=== PATIENT | male | born 1935 | race Caucasian/White ===

== ENCOUNTER 2021-07-15 10:45 | Observation (INO) | payer OTHER ==
[~2021-07-15] VITALS: Ht 182.9 cm; Wt 81.6 kg
[~2021-07-15 10:45] MED LIST: AMLODIPINE BESY10 MG PO; ATORVASTATIN CA20 MG PO; ELIQUIS5 MG PO; FLUOXETINE HCL40 MG PO; LOPRESSOR50 PO; LOSARTAN POTAS100 MG PO
[2021-07-15 12:36] VITALS: BP 149/56
[2021-07-15 12:40] LABS: HEMATOCRIT 36.4 % (42.0-52.0); MCH 27.9 pg (26.0-34.0); MCHC 32.9 g/dL (28.0-37.0); MCV 84.7 fL (80.0-100.0); RBC 4.3 mil/uL (4.50-6.00); RDW 17.6 % (10.5-14.5); WBC 8.2 thou/uL (4.0-11.0)
[2021-07-15 13:02] LABS: CALCIUM 9.3 mg/dL (8.5-10.1); CREATININE 0.9 mg/dL (0.7-1.3); POTASSIUM 3.3 mmol/L (3.5-5.1)
[2021-07-15 18:09] VITALS: BP 137/83
[2021-07-15 19:27] VITALS: BP 103/61
[2021-07-16 00:30] VITALS: BP 123/70
--- NOTE | 2021-07-16 01:52 | NUR ---
ASSESSED AT START OF SHIFT 1900. PT RESTING IN BED. A&OX4 DENIES PAIN. URINAL AT BEDSIDE. VSS. SCD'S ON BLE. LEFT FACIAL DRESSING INTACT. NO FURTHER SIGNS OF DISCOMFORT WILL CONT TO MONITOR.
[2021-07-16 04:46] VITALS: BP 132/73
--- NOTE | 2021-07-16 07:25 | EKG ---
[place] [address] [facility] [address] [place] [address] ELECTROCARDIOGRAM REPORT Name: LEAH ZALDIVAR Room #: 436-P [facility] M.R.#: [id number] Admission: 07/15/21 Attend Phys: Henrik Bedolla MD Discharge: Date of : 35 Report #: [id number] [facility] Test Date: 2021-07-15 Test Time: 13:02:30 Pat Name: LEAH ZALDIVAR Department: Room: [facility] Gender: M Physical Therapy Aid: KIARA : 1935 Requested By: Henrik Bedolla Order Number: [id number] : Domo Norman Measurements Intervals [place] Rate: 62 P: AK: QRS: -68 QRSD: 147 T: 98 QT: 459 QTc: 467 Interpretive Statements Atrial flutter with predominant 4:1 AV block Ventricular premature complex IVCD, consider atypical RBBB LVH with IVCD, LAD and secondary repol abnrm Probable inferior infarct, recent No previous ECG available for comparison Electronically Signed On 07-16-2021 7:25:02 CDT by Domo Norman [email or web address] <ELECTRONICALLY SIGNED> By: Domo Norman MD, FACC 07/16/21 0725 1302 130 Domo Norman MD, [facility] /EPI
--- NOTE | 2021-07-16 07:44 | O ---
[facility] [address] [place] [address] OPERATIVE REPORT Name: LEAH ZALDIVAR Room #: 436-P [facility] M.R.#: [id number] Admission: 07/15/21 Attend Phys: Henrik Bedolla MD Discharge: Date of : 35 Report #: [id number] THIS REPORT FOR: cc: CLARA TURCIOS [facility] Physician not on staff Henrik Bedolla MD ~ cc: Lavelle Carmichael DATE OF SERVICE: 07/15/2021 PREOPERATIVE DIAGNOSES: 1. Facial cutaneous malignancy, left side, squamous cell carcinoma. 2. Mohs defect, left face. 3. Mohs defect, left neck. 4. Defect size, left face, approximately 12 x 8 cm. Defect size, left neck, approximately 5 x 3 cm. POSTOPERATIVE DIAGNOSES: 1. Facial cutaneous malignancy, left side, squamous cell carcinoma. 2. Mohs defect, left face. 3. Mohs defect, left neck. 4. Defect size, left face, approximately 12 x 8 cm. Defect size, left neck, approximately 5 x 3 cm. PROCEDURES PERFORMED: 1. Adjacent tissue transfer, left neck, approximately 15 square cm. 2. Adjacent tissue transfer, left scalp, approximately 10 square cm. 3. Scar contracture release, face. 4. Split-thickness skin graft to left face, approximately 16 cm2. PRIMARY SURGEON: Henrik Bedolla MD ANESTHESIA: General. GALLERY OR MUSEUM ATTENDANT: None. COMPLICATIONS: None. ESTIMATED BLOOD LOSS: 5 mL. SPECIMENS: None. 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 He achieved clearance by the Mohs surgeon on 07/13/2021 and was referred to me for formal [facility] [address] [place] [address] OPERATIVE REPORT Name: LEAH ZALDIVAR Room #: 436-P [facility] MJason#: [id number] Admission: 07/15/21 Attend Phys: Henrik Bedolla MD Discharge: Date of : 35 Report #: [id number] reconstruction of the area. He was counseled in the office and signed the consent form for the above-named procedures. DESCRIPTION OF THE PROCEDURE: The patient was identified in the preoperative area before being transported to the operating room and placed supine on the operating table. At this point, general anesthesia was induced and a timeout was called to ensure the patient's identity and procedure to be performed. Next, the left face and neck wounds were injected locally with 1% lidocaine with 1:100,000 epinephrine solution, followed by epinephrine and lidocaine solution into the left ventral thigh. Next, all of these areas were prepped and draped in the normal sterile fashion. Starting first on the patient's left neck, scar contracture release was performed with sharp iris scissor and Adson forceps, debriding the areas back to healthy bleeding tissue. Hemostasis was then achieved with a combination of monopolar and bipolar cautery. Next, attention was turned to the left neck defect, which was measured to be approximately 5 x 3 cm. A small rotational flap from the inferior cervical skin was planned for a small rotation flap. This area was undermined in the subcutaneous plane and a releasing incision was made along a natural skin crease to allow rotation and advancement. This was closed in layers using 3-0 Monocryl in the deep layer, followed by 5-0 plain gut to reapproximate the skin. This was able to be closed under no tension at all. Next, attention was turned to the very large left facial defect. This was measured to be approximately 12 x 8 cm. There was no way to achieve closure with local flaps or tissue advancement; therefore, I elected to collapse the defect slightly. I placed 3-0 Monocryl sutures in the deep layer to collapse the wound somewhat and suturing this to the superficial musculoaponeurotic system of that portion of the face. This was able to collapse the defect to approximately 10 x 6 cm. Next, measurements were transferred to the patient's left ventral thigh and using a Gliph dermatome, a split-thickness skin graft was harvested in a standard fashion. It was then placed into the wound bed on the left face and sutured around its periphery using 5-0 plain gut suture. Excess skin graft was trimmed and discarded. This draped into the defect very nicely. Next, I affixed a large bolster dressing over the top of the split-thickness graft and dressed the left thigh harvest area in a standard fashion with Xeroform, Telfa and a Tegaderm dressing. At this point, all needle, suture and instrument counts were correct x2 and the procedure was concluded. He was reversed from anesthesia and transported to PACU in stable condition. DISPOSITION: The patient will be kept overnight for observation given he has a strong cardiac history. He will just have basic wound care and be released to home tomorrow pending any complications in his postoperative stay. He has been given prescription pain medication and antibiotics that he should use as [facility] [address] [place] [address] OPERATIVE REPORT Name: LEAH ZALDIVAR Room #: 436-P [facility] Gabriela Diaz#: [id number] Admission: 07/15/21 Attend Phys: Henrik Bedolla MD Discharge: Date of : 35 Report #: [id number] directed. I will see him in followup in approximately one week's time. He may follow all other printed postoperative instructions that he has been provided. <ELECTRONICALLY SIGNED> By: Henrik Bedolla MD 07/16/21 0744 1516 1558 Henrik Bedolla MD /nt
[2021-07-16 08:08] VITALS: BP 136/73
--- NOTE | 2021-07-16 09:30 | NUR ---
Assumed care of pt at 0700. Pt a&ox4. Denies pain. Dressings c/d/i. Tolerates diet well. Able to void w/o issues. Discharging to home today. Call light within reach. Will continue to monitor.
[2021-07-16 09:51] VITALS: BP 136/73
== END 2021-07-16 11:00 | disposition home or self-care (01) ==
LOC: OR 10:45 → 4S 17:36 → OR 17:37 → 4S 07-16 11:00
PROVIDERS: ADMIT Otolaryngology; ATTEND Otolaryngology
DX: C44.309 Unspecified malignant neoplasm of skin of other parts of face (principal); C44.92 Squamous cell carcinoma of skin, unspecified; M95.3 Acquired deformity of neck; M95.2 Other acquired deformity of head; M89.70 Major osseous defect, unspecified site; Z20.822 Contact with and (suspected) exposure to COVID-19; Z79.899 Other long term (current) drug therapy
CPT/HCPCS: 10102; 50010; 50101; 50386; 50403; 51412; 56526; 56527; 56528; 56693; 57006; 62110; 62900; 70005